=== PATIENT | male | born 1965 | race African-American/Black ===

== ENCOUNTER 2018-12-01 21:39 | Emergency (ER) | payer BC ==
[2018-12-01] MEDS ORDERED: cloNIDine HCl 0.1 MG TAB ONE (21:54)
--- NOTE | 2018-12-01 23:34 | ER ---
Nurse's Notes [facility] Name: Jessee Snyder Age: 53 yrs Sex: Male : 1965 Arrival Date: 12/01/2018 Time: 21:40 Bed 17 Private MD: Diagnosis: Essential (primary) hypertension Presentation: 12/01 21:41 Presenting complaint: EMS states: Pt was working outside when he felt dizzy and wh lightheaded. He was sent to the clinic and they found out Pt has high blood pressure and EMS was called. Pt states he has Hx of HTN and takes 4 Blood pressure pills which he forgot to take today. Pt denies any chest pain or NV. Transition of care: patient was not received from another setting of care. Onset of symptoms was December 01, 2018. Risk Assessment: Do you want to hurt yourself or someone else? Patient reports no desire to harm self or others. Initial Sepsis Screen: Does the patient meet any 2 criteria? No. Patient's initial sepsis screen is negative. Does the patient have a suspected source of infection? No. Patient's initial sepsis screen is negative. Care prior to arrival: None. 21:41 Method Of Arrival: EMS: [facility] 21:41 Acuity: BLAISE 3 Triage Assessment: 21:44 General: Appears. 21:49 Pain: Denies pain. Historical: - Allergies: 21:49 No Known Allergies; wh - PMHx: 21:49 Hypertension; - Immunization history:: Adult Immunizations up to date. - Social history:: Smoking status: Patient/guardian denies using tobacco. - Ebola Screening: : Patient negative for fever greater than or equal to 101.5 degrees Fahrenheit, and additional compatible Ebola Virus Disease symptoms Patient denies exposure to infectious person. Screenin:43 Abuse screen: Denies threats or abuse. Denies injuries from another. Nutritional screening: No deficits noted. Tuberculosis screening: No symptoms or risk factors identified. Fall Risk None identified. Assessment: 21:50 General: Appears in no apparent distress. Behavior is calm, cooperative, appropriate wh for age. Pain: Denies pain. Neuro: Level of Consciousness is awake, alert, obeys commands, Oriented to person, place, time, situation, Appropriate for age Systems Support Specialist are equal bilaterally. Cardiovascular: Heart tones S1 S2 Capillary refill < 3 seconds. Respiratory: Airway is patent Respiratory effort is even, unlabored, Respiratory pattern is regular, symmetrical. GI: Abdomen is round non-distended. : No signs and/or symptoms were reported regarding the genitourinary system. EENT: No signs and/or symptoms were reported regarding the EENT system. Derm: Skin is intact, is healthy with good turgor, Skin is pink, warm \T\ dry. normal. Musculoskeletal: Range of motion: intact in all extremities. 22:54 Reassessment: Patient appears in no apparent distress at this time. No changes from previously documented assessment. Patient and/or family updated on plan of care and expected duration. Pain level reassessed. Patient is alert, oriented x 3, equal unlabored respirations, skin warm/dry/pink. Patient denies pain at this time. 12/02 00:03 Reassessment: Patient appears in no apparent distress at this time. No changes from previously documented assessment. Patient and/or family updated on plan of care and expected duration. Pain level reassessed. Patient is alert, oriented x 3, equal unlabored respirations, skin warm/dry/pink. Patient states feeling better. Patient states symptoms have improved. Vital Signs: 12/01 21:47 BP 195 / 101; Pulse 74; Resp 18; Temp 98.6; Pulse Ox 100% on R/A; 22:54 BP 183 / 106; Pulse 63; Resp 18; Pulse Ox 99% on R/A; 12/02 00:03 BP 152 / 84; Pulse 59; Resp 18; Pulse Ox 99% on R/A; ED Course: 12/01 21:40 Patient arrived in ED. 21:41 Anna Arriaga is Primary Nurse. 21:43 Triage completed. 21:44 Arm band placed on right wrist. 21:45 Patient has correct armband on for positive identification. Bed in low position. Call light in reach. Side rails up X 1. Pulse ox on. NIBP on. 21:46 Johnna Oropeza FNP-C is PHCP. 21:46 Ayo Mixon MD is Attending Physician. kb 12/02 00:04 No provider procedures requiring assistance completed. Patient did not have IV access during this emergency room visit. Administered Medications: 12/01 21:57 Drug: cloNIDine 0.2 mg Route: PO; 12/02 00:04 Follow up: Response: No adverse reaction; Blood pressure is lowered Outcome: 12/01 23:33 Discharge ordered by MD. fair 12/02 00:04 Discharged to home ambulatory. Condition: good Discharge instructions given to patient, Instructed on discharge instructions, follow up and referral plans. medication usage, POC Essential Hypertension Demonstrated understanding of instructions, follow-up care, POC 00:05 Patient left the ED. Signatures: Johnna Oropeza FNP-C FNP-Ckb Habalo, Winsy
--- NOTE | 2018-12-01 23:34 | EDPHYS ---
Physician Documentation [facility] Name: Jessee Snyder Age: 53 yrs Sex: Male : 1965 Arrival Date: 12/01/2018 Time: 21:40 Bed 17 Private MD: ED Physician Ayo Mixon HPI: 12/01 22:25 This 53 yrs old Black Male presents to ER via EMS with complaints of high blood kb pressure. 22:25 The patient has elevated blood pressure and discovered this work. Onset: The kb symptoms/episode began/occurred just prior to arrival. Modifying factors: The symptoms are aggravated by didn't take medication today. Associated signs and symptoms: The patient has no apparent associated signs or symptoms. The patient has experienced similar episodes in the past, chronically. The patient has not recently seen a physician. Pt reports he forgot to take his medications for BP today and his BP was high at work. States he asked to go home to take them, but they wouldn't let him, they made him come here instead. States he feels fine. Has no complaints. Reports he takes 4 different bp medications, but cannot recall the names of them. Historical: - Allergies: 21:49 No Known Allergies; wh - PMHx: 21:49 Hypertension; wh - Immunization history:: Adult Immunizations up to date. - Social history:: Smoking status: Patient/guardian denies using tobacco. - Ebola Screening: : Patient negative for fever greater than or equal to 101.5 degrees Fahrenheit, and additional compatible Ebola Virus Disease symptoms Patient denies exposure to infectious person. ROS: 22:25 Constitutional: Negative for fever, chills, and weight loss, ENT: Negative for injury, kb pain, and discharge, Neck: Negative for injury, pain, and swelling, Cardiovascular: Negative for chest pain, palpitations, and edema, Respiratory: Negative for shortness of breath, cough, wheezing, and pleuritic chest pain, Abdomen/GI: Negative for abdominal pain, nausea, vomiting, diarrhea, and constipation, Back: Negative for injury and pain, : Negative for injury, bleeding, discharge, and swelling, MS/Extremity: Negative for injury and deformity, Skin: Negative for injury, rash, and discoloration, Neuro: Negative for headache, weakness, numbness, tingling, and seizure. Exam: 22:25 Constitutional: This is a well developed, well nourished patient who is awake, alert, kb and in no acute distress. Head/Face: Normocephalic, atraumatic. Eyes: Pupils equal round and reactive to light, extra-ocular motions intact. Lids and lashes normal. Conjunctiva and sclera are non-icteric and not injected. Cornea within normal limits. Periorbital areas with no swelling, redness, or edema. ENT: Nares patent. No nasal discharge, no septal abnormalities noted. Tympanic membranes are normal and external auditory canals are clear. Oropharynx with no redness, swelling, or masses, exudates, or evidence of obstruction, uvula midline. Mucous membranes moist. Neck: Trachea midline, no thyromegaly or masses palpated, and no cervical lymphadenopathy. Supple, full range of motion without nuchal rigidity, or vertebral point tenderness. No Meningismus. Chest/axilla: Normal chest wall appearance and motion. Nontender with no deformity. No lesions are appreciated. Cardiovascular: Regular rate and rhythm with a normal S1 and S2. No gallops, murmurs, or rubs. Normal PMI, no JVD. No pulse deficits. Respiratory: Lungs have equal breath sounds bilaterally, clear to auscultation and percussion. No rales, rhonchi or wheezes noted. No increased work of breathing, no retractions or nasal flaring. Abdomen/GI: Soft, non-tender, with normal bowel sounds. No distension or tympany. No guarding or rebound. No evidence of tenderness throughout. Back: No spinal tenderness. No costovertebral tenderness. Full range of motion. Skin: Warm, dry with normal turgor. Normal color with no rashes, no lesions, and no evidence of cellulitis. MS/ Extremity: Pulses equal, no cyanosis. Neurovascular intact. Full, normal range of motion. Neuro: Awake and alert, GCS 15, oriented to person, place, time, and situation. Cranial nerves II-XII grossly intact. Motor strength 5/5 in all extremities. Sensory grossly intact. Cerebellar exam normal. Normal gait. Vital Signs: 21:47 BP 195 / 101; Pulse 74; Resp 18; Temp 98.6; Pulse Ox 100% on R/A; wh 22:54 BP 183 / 106; Pulse 63; Resp 18; Pulse Ox 99% on R/A; 12/02 00:03 BP 152 / 84; Pulse 59; Resp 18; Pulse Ox 99% on R/A; MDM: 12/01 21:46 Patient medically screened. kb 22:18 Data reviewed: vital signs, nurses notes. Data interpreted: Pulse oximetry: on room air kb is 100 %. Interpretation: normal. 23:33 Counseling: I had a detailed discussion with the patient and/or guardian regarding: the kb historical points, exam findings, and any diagnostic results supporting the discharge/admit diagnosis, the need for outpatient follow up, a family practitioner, to return to the emergency department if symptoms worsen or persist or if there are any questions or concerns that arise at home. Administered Medications: 21:57 Drug: cloNIDine 0.2 mg Route: PO; 12/02 00:04 Follow up: Response: No adverse reaction; Blood pressure is lowered Disposition: 06:39 Co-signature as Attending Physician, Ayo Mixon MD I agree with the assessment and tw4 plan of care. Disposition: 12/01/18 23:33 Discharged to Home. Impression: Essential (primary) hypertension. - Condition is Stable. - Discharge Instructions: Hypertension, [id number]. - Work release form, Medication Reconciliation Form, Thank You Letter, Antibiotic Education, Prescription Opioid Use form. - Follow up: Emergency Department; When: As needed; Reason: Worsening of condition. Follow up: Private Physician; When: 2 - 3 days; Reason: Recheck today's complaints, Continuance of care, Re-evaluation by your physician. Signatures: Johnna Oropeza FNP-C FNP-Anna Saez Ayo Mixon MD MD tw4 Corrections: (The following items were deleted from the chart) 00:05 12/01 23:33 12/01/2018 23:33 Discharged to Home. Impression: Essential (primary) hypertension. Condition is Stable. Forms are Medication Reconciliation Form, Thank You Letter, Antibiotic Education, Prescription Opioid Use. Follow up: Emergency Department; When: As needed; Reason: Worsening of condition. Follow up: Private Physician; When: 2 - 3 days; Reason: Recheck today's complaints, Continuance of care, Re-evaluation by your physician. kb
== END 2018-12-02 00:05 | disposition home or self-care (01) ==
LOC: ER 21:39
DX: I10 Essential (primary) hypertension (principal)
CPT/HCPCS: 99283

== ENCOUNTER 2019-01-30 15:26 | Inpatient (IN) | payer BC ==
[2019-01-30] MEDS ORDERED: cloNIDine HCl 0.1 MG TAB ONE (15:52)
[2019-01-30] MEDS ORDERED: AMLODIPINE 5 MG TAB ONE (15:53)
--- NOTE | 2019-01-30 16:39 | RAD REPORT ---
EXAM DESCRIPTION: RAD - Chest Pa And Lat (2 Views) - 01/30/2019 4:33 pm CLINICAL HISTORY: COUGH Chest pain. COMPARISON: <Comparisons> FINDINGS: Mild interstitial pulmonary edema suspected. The heart is moderately enlarged. No displace d fractures. IMPRESSION: Mild CHF versus volume overload is possible.
[2019-01-30 17:11] LABS: Absolute Lymphocytes (CBC) 1.5 K/uL (0.7-4.9); Basophils % 0.5 % (0-1.3); Lymphocytes % 24.8 % (15.3-44.8); MPV 9.2 fL (7.6-11.3); RBC Red Blood Cell Count 4.44 M/uL (4.33-5.43)
[2019-01-30 17:15] LABS: Protime INR 1.16
[2019-01-30 17:36] LABS: Albumin 3.2 g/dL (3.4-5.0); Bilirubin Direct 0.3 mg/dL (0-0.2); Bilirubin Total 0.6 mg/dL (0.2-1.0); Magnesium 1.8 mg/dL (1.8-2.4); Potassium 3.9 mmol/L (3.5-5.1); Protein, Total 6.7 g/dL (6.4-8.2); Troponin (Emerg Dept Use Only) 0.05 ng/mL (0.0-0.045)
--- NOTE | 2019-01-30 17:48 | ER ---
Nurse's Notes [facility] Name: Jessee Snyder Age: 53 yrs Sex: Male : 1965 Arrival Date: 01/30/2019 Time: 15:28 Bed 13 Private MD: Unknown, Unknown Diagnosis: Hypertensive heart and chronic kidney disease with heart failure and stage 1 through stage 4 chronic kidney disease, or unspecified chronic kidney disease Presentation: 01/30 15:35 Presenting complaint: Patient states: SOB, COUGH x3 DAYS. Transition of care: patient ss was not received from another setting of care. Onset of symptoms is unknown. Risk Assessment: Do you want to hurt yourself or someone else? Patient reports no desire to harm self or others. Initial Sepsis Screen: Does the patient meet any 2 criteria? No. Patient's initial sepsis screen is negative. Does the patient have a suspected source of infection? No. Patient's initial sepsis screen is negative. Care prior to arrival: None. 15:35 Method Of Arrival: Wheelchair ss 15:35 Acuity: BLAISE 3 ss Historical: - Allergies: 15:36 No Known Allergies; ss - Home Meds: 17:02 clonidine HCl 0.2 mg Oral tab 1 tab 2 times per day [Active]; amlodipine 10 mg tab 1 sv tab once daily [Active]; lisinopril-hydrochlorothiazide 20-12.5 mg oral tab 1 tab twice a day [Active]; Coreg 3.125 mg Oral tab 1 tab 2 times per day [Active]; - PMHx: 15:36 Hypertension; ss - Immunization history:: Adult Immunizations up to date. - Social history:: Smoking status: Patient/guardian denies using tobacco. - Ebola Screening: : No symptoms or risks identified at this time. Screenin:42 Abuse screen: Denies threats or abuse. Denies injuries from another. Nutritional sv screening: No deficits noted. Tuberculosis screening: No symptoms or risk factors identified. Fall Risk None identified. Assessment: 16:00 General: Appears in no apparent distress. comfortable, Behavior is calm, cooperative, sv appropriate for age. Pain: Denies pain. Neuro: Level of Consciousness is awake, alert, obeys commands, Oriented to person, place, time, situation, Gait is steady. Cardiovascular: Patient's skin is warm and dry. Respiratory: Reports shortness of breath on exertion Airway is patent Respiratory effort is even, unlabored, Respiratory pattern is regular, symmetrical, Breath sounds are clear bilaterally. Derm: Skin is pink, warm \T\ dry. 17:05 Reassessment: Patient appears in no apparent distress at this time. No changes from sv previously documented assessment. Patient and/or family updated on plan of care and expected duration. Pain level reassessed. Patient is alert, oriented x 3, equal unlabored respirations, skin warm/dry/pink. 19:00 Reassessment: Patient and/or family updated on plan of care and expected duration. Pain jb4 level reassessed. Patient is alert, oriented x 3, equal unlabored respirations, skin warm/dry/pink. Patient states feeling better. 20:00 Reassessment: Patient and/or family updated on plan of care and expected duration. Pain jb4 level reassessed. Hospitalist at the bedside. Hospitalist made aware of current vital signs and pt reporting headache. Verbal order for Hydralazine 10mg IVP once given. Pt is awake and oriented x4 has labored breathing upon exertion. Vital Signs: 15:36 BP 194 / 112; Pulse 80; Resp 16; Temp 97.4; Pulse Ox 94% ; Weight 172.37 kg; Height 6 ss ft. (182.88 cm); 16:00 BP 221 / 131; Pulse 75; sv 16:41 BP 191 / 125; Pulse 75; sv 17:30 BP 175 / 105; Pulse 67; Resp 18; sv 18:18 BP 167 / 103; Pulse 68; Resp 14; Pulse Ox 96% ; sv 19:00 BP 179 / 117; Pulse 73; Resp 19; Temp 98.3(O); Pulse Ox 96% on R/A; jb4 19:49 BP 190 / 120; Pulse 68; Resp 18; Pulse Ox 97% on R/A; jb4 20:15 BP 172 / 105; Pulse 73; Resp 24; Pulse Ox 97% on R/A; jb4 15:36 Body Mass Index 51.54 (172.37 kg, 182.88 cm) ED Course: 15:28 Patient arrived in ED. as 15:28 Unknown, Unknown is Private Physician. as 15:35 Triage completed. 15:36 Arm band placed on. 15:40 Kam Cotton PA is PHCP. jr8 15:40 Rohith Schulz MD is Attending Physician. jr8 15:42 Karen Choi, RN is Primary Nurse. sv 15:42 Patient has correct armband on for positive identification. Bed in low position. Call light in reach. Door closed. Head of bed elevated. 15:43 Nurse Practitioner and/or Physician Industrial Designer to see patient. sv 16:32 X-ray completed. Patient tolerated procedure well. Patient moved back from radiology. az 16:34 Chest Pa And Lat (2 Views) XRAY In Process Unspecified. EDMS 17:02 Initial lab(s) drawn, by az, sent to lab. Inserted saline lock: 20 gauge in right dh3 antecubital area, using aseptic technique. Blood collected. 17:43 EKG done, by marine electronics technician. reviewed by Kam JUAREZ. [facility] 17:46 Nadeem Kim MD is Hospitalizing Provider. jr8 18:13 Awaiting bed assignment. sv 18:54 Primary Nurse role handed off by Karen Choi RN sv 20:15 No provider procedures requiring assistance completed. Patient admitted, IV remains in jb4 place. Administered Medications: 16:05 Drug: cloNIDine 0.2 mg Route: PO; sv 16:42 Follow up: Response: No adverse reaction sv 16:05 Drug: Norvasc 10 mg Route: PO; sv 16:42 Follow up: Response: No adverse reaction sv Outcome: 17:48 Decision to Hospitalize by Provider. jr8 20:15 Admitted to Tele accompanied by tech, via wheelchair, with chart, Report called to [facility] AGUS Kerr 20:15 Condition: stable 20:15 Discharge instructions given to patient, Instructed on the need for admit, Demonstrated understanding of instructions. 20:32 Patient left the ED. [facility] Signatures: Dispatcher [employer] EDGA Karen Choi, RN AGUS Alla Mejia Shelby, RN RN ss Roszak, Josh, PA PA [facility] Wolf Perry RN RN [facility] Sandi Duran [facility] Klaudia Delgado [facility] Teresita Calabrese al Corrections: (The following items were deleted from the chart) 17:02 15:36 Home Meds: None; sv
--- NOTE | 2019-01-30 17:49 | EDPHYS ---
Physician Documentation [facility] Name: Jessee Snyder Age: 53 yrs Sex: Male : 1965 Arrival Date: 01/30/2019 Time: 15:28 Bed 13 Private MD: Unknown, Unknown ED Physician Rohith Schulz HPI: 01/30 15:57 This 53 yrs old Black Male presents to ER via Wheelchair with complaints of Breathing jr8 Difficulty, Cold Symptoms. 15:57 The patient has shortness of breath with light activity. Onset: The symptoms/episode jr8 began/occurred 3 day(s) ago. Pt reports for the last three days he has had a cough that is productive of small amounts of sputum. Pt reports he has been out of his BP meds for a few days and will not have access to them for at least a week. Denies fevers, denies chest pain. Reports ill contacts at work. . Historical: - Allergies: 15:36 No Known Allergies; ss - Home Meds: 17:02 clonidine HCl 0.2 mg Oral tab 1 tab 2 times per day [Active]; amlodipine 10 mg tab 1 sv tab once daily [Active]; lisinopril-hydrochlorothiazide 20-12.5 mg oral tab 1 tab twice a day [Active]; Coreg 3.125 mg Oral tab 1 tab 2 times per day [Active]; - PMHx: 15:36 Hypertension; ss - Immunization history:: Adult Immunizations up to date. - Social history:: Smoking status: Patient/guardian denies using tobacco. - Ebola Screening: : No symptoms or risks identified at this time. ROS: 15:57 Constitutional: Negative for fever, chills, and weight loss, Eyes: Negative for injury, jr8 pain, redness, and discharge, ENT: Negative for injury, pain, and discharge, Neck: Negative for injury, pain, and swelling, Cardiovascular: Negative for chest pain, palpitations, and edema, Abdomen/GI: Negative for abdominal pain, nausea, vomiting, diarrhea, and constipation, Back: Negative for injury and pain, MS/Extremity: Negative for injury and deformity, Skin: Negative for injury, rash, and discoloration. 15:57 Respiratory: Positive for cough, with green sputum, Negative for hemoptysis, orthopnea, pleurisy, wheezing. Exam: 15:57 Constitutional: This is a well developed, well nourished patient who is awake, alert, jr8 and in no acute distress. Head/Face: Normocephalic, atraumatic. Eyes: Pupils equal round and reactive to light, extra-ocular motions intact. Lids and lashes normal. Conjunctiva and sclera are non-icteric and not injected. Cornea within normal limits. Periorbital areas with no swelling, redness, or edema. ENT: Nares patent. No nasal discharge, no septal abnormalities noted. Tympanic membranes are normal and external auditory canals are clear. Oropharynx with no redness, swelling, or masses, exudates, or evidence of obstruction, uvula midline. Mucous membranes moist. Neck: Trachea midline, and no cervical lymphadenopathy. Supple, full range of motion without nuchal rigidity, or vertebral point tenderness. No Meningismus. Chest/axilla: Normal chest wall appearance and motion. Nontender with no deformity. No lesions are appreciated. Cardiovascular: Regular rate and rhythm with a normal S1 and S2. No gallops, murmurs, or rubs. Normal PMI, no JVD. No pulse deficits. Respiratory: Lungs have equal breath sounds bilaterally, clear to auscultation No rales, rhonchi or wheezes noted. No increased work of breathing, no retractions or nasal flaring. Abdomen/GI: Soft, non-tender, with normal bowel sounds. No distension or tympany. No guarding or rebound. No evidence of tenderness throughout. Back: No spinal tenderness. No costovertebral tenderness. Full range of motion. Skin: Warm, dry with normal turgor. Normal color with no rashes, no lesions, and no evidence of cellulitis. Vital Signs: 15:36 BP 194 / 112; Pulse 80; Resp 16; Temp 97.4; Pulse Ox 94% ; Weight 172.37 kg; Height 6 ss ft. (182.88 cm); 16:00 BP 221 / 131; Pulse 75; sv 16:41 BP 191 / 125; Pulse 75; sv 17:30 BP 175 / 105; Pulse 67; Resp 18; sv 18:18 BP 167 / 103; Pulse 68; Resp 14; Pulse Ox 96% ; sv 19:00 BP 179 / 117; Pulse 73; Resp 19; Temp 98.3(O); Pulse Ox 96% on R/A; jb4 19:49 BP 190 / 120; Pulse 68; Resp 18; Pulse Ox 97% on R/A; jb4 20:15 BP 172 / 105; Pulse 73; Resp 24; Pulse Ox 97% on R/A; jb4 15:36 Body Mass Index 51.54 (172.37 kg, 182.88 cm) ss MDM: 15:40 Patient medically screened. 8 17:46 Data reviewed: vital signs, nurses notes, lab test result(s), EKG, radiologic studies, jr8 plain films. Data interpreted: Pulse oximetry: on room air is 94 %. Interpretation: acceptable. Counseling: I had a detailed discussion with the patient and/or guardian regarding: the historical points, exam findings, and any diagnostic results supporting the discharge/admit diagnosis, lab results, radiology results, the need for further work-up and treatment in the hospital. Physician consultation: Nadeem Kim MD was called at 17:46, was contacted at 17:46, regarding admission, to the telemetry unit. consult, patient's condition, and will see patient in ED. 01/30 16:51 Order name: Basic Metabolic Panel; Complete Time: 17:38 01/30 16:51 Order name: CBC with Diff; Complete Time: 17:22 01/30 16:51 Order name: LFT's; Complete Time: 17:38 01/30 16:51 Order name: Magnesium; Complete Time: 17:38 01/30 16:51 Order name: NT PRO-BNP; Complete Time: 17:38 01/30 16:51 Order name: PT-INR; Complete Time: 17:22 01/30 15:48 Order name: Chest Pa And Lat (2 Views) XRAY; Complete Time: 16:50 01/30 16:51 Order name: Troponin (emerg Dept Use Only); Complete Time: 17:38 01/30 16:51 Order name: EKG; Complete Time: 16:52 01/30 16:51 Order name: Cardiac monitoring; Complete Time: 17:38 01/30 16:51 Order name: EKG - Nurse/Tech; Complete Time: 17:38 01/30 16:51 Order name: IV Saline Lock; Complete Time: 17:03 01/30 16:51 Order name: Labs collected and sent; Complete Time: 17:03 8 01/30 16:51 Order name: O2 Per Protocol; Complete Time: 17:38 8 01/30 16:51 Order name: O2 Sat Monitoring; Complete Time: 17:38 8 Administered Medications: 16:05 Drug: cloNIDine 0.2 mg Route: PO; sv 16:42 Follow up: Response: No adverse reaction sv 16:05 Drug: Norvasc 10 mg Route: PO; sv 16:42 Follow up: Response: No adverse reaction sv Disposition: 01/31 06:21 Co-signature as Attending Physician, Rohith Schulz MD I agree with the assessment and yayo plan of care. Disposition: 01/30/19 17:48 Hospitalization ordered by Nadeem Kim for Inpatient Admission. Preliminary diagnosis is Hypertensive heart and chronic kidney disease with heart failure and stage 1 through stage 4 chronic kidney disease, or unspecified chronic kidney disease. - Bed requested for Telemetry/MedSurg (Inpatient). - Status is Inpatient Admission. jb4 - Condition is Stable. - Problem is new. - Symptoms are unchanged. UTI on Admission? No Signatures: Dispatcher [employer] EDMS Natty Haynes Stephanie, RN RN Rohith Schulz MD MD cha Smirch, Shelby, RN RN Kam Cotton PA PA jr8 Wolf Perry RN RN jb4 Corrections: (The following items were deleted from the chart) 01/30 17:02 15:36 Home Meds: None; [facility] specialty hospital 18:14 17:48 Hospitalization Ordered by Nadeem Kim MD for Observation. Preliminary diagnosis jr8 is Hypertensive heart and chronic kidney disease with heart failure and stage 1 through stage 4 chronic kidney disease, or unspecified chronic kidney disease. Bed requested for Telemetry/MedSurg (observation). Status is Observation. Condition is Stable. Problem is new. Symptoms are unchanged. UTI on Admission? No. jr8 18:39 18:14 01/30/2019 17:48 Hospitalization Ordered by Nadeem Kim MD for Inpatient bd Admission. Preliminary diagnosis is Hypertensive heart and chronic kidney disease with heart failure and stage 1 through stage 4 chronic kidney disease, or unspecified chronic kidney disease. Bed requested for Telemetry/MedSurg (Inpatient). Status is Inpatient Admission. Condition is Stable. Problem is new. Symptoms are unchanged. UTI on Admission? No. jr8 20:32 18:39 01/30/2019 17:48 Hospitalization Ordered by Nadeem Kim MD for Inpatient jb4 Admission. Preliminary diagnosis is Hypertensive heart and chronic kidney disease with heart failure and stage 1 through stage 4 chronic kidney disease, or unspecified chronic kidney disease. Bed requested for Telemetry/MedSurg (Inpatient). Status is Inpatient Admission. Condition is Stable. Problem is new. Symptoms are unchanged. UTI on Admission? No. bd
[2019-01-30] MEDS ORDERED: HYDRALAZINE HCL 20 MG/ML VIAL ONE (19:53)
[2019-01-30] MEDS: HYDRALAZINE HCL 20 MG/ML VIAL IV PRN (20:10)
--- NOTE | 2019-01-30 20:32 | P.HP ---
Certification for Inpatient Patient admitted to: Observation With expected LOS: <2 Midnights Patient will require the following post-hospital care: None Practitioner: I am a practitioner with admitting privileges, knowledge of patient current condition, hospital course, and medical plan of care. Services: Services provided to patient in accordance with Admission requirements found in Title 42 Section 412.3 of the Code of Federal Regulations Patient History Date of Service: 01/31/19 Reason for admission: Shortness of breath History of Present Illness: 53-year-old morbidly obese male with a history of hypertension presented to the emergency department with a complaint of shortness of breath of about 3 days duration. He described shortness of breath worse with exertion , denies shortness of breath at rest. He denied any chest pain or palpitations. He stated he run out of his antihypertensives 3 days ago. He denies any history of obstructive sleep apnea or diabetes. His blood pressure was severely elevated in the ED, SBP up to 200s. His troponin is mildly elevated to 0.05. EKG demonstrated sinus rhythm, chest x- ray demonstrated mild CHF pattern. Patient was given a dose of 0.2 mg clonidine and amlodipine with a transient improvement in his blood pressure. Patient is admitted for further management. Allergies No Known Allergies Allergy (Verified 01/30/19 20:46) Home Medications: Amlodipine [Norvasc] 10 mg PO DAILY 01/30/19 Carvedilol [Coreg] 3.125 mg PO BID 01/30/19 Clonidine HCl [Catapres] 0.2 mg PO BID 01/30/19 Lisinopril/Hydrochlorothiazide [Lisinopril-Hctz 20-12.5 mg Tab] 1 tab PO BID - Past Medical/Surgical History -: Hypertension -: Morbid obesity Past Surgical History: Patient denies surgical history - Family History Sister -: Diabetes - Social History Smoking Status: Current every day smoker Alcohol use: No CD- Drugs: No Place of Residence: Home Review of Systems Other: General: No fever, no malaise, no unintentional weight loss. Eyes: No eye discharge, Respiratory: No cough. CVS: No chest pain, no palpitation, no lightheadedness. GI: No abdominal pain, no nausea no vomit, no constipation, no diarrhea. Genitourinary: No dysuria, no urinary frequency, no incontinence, no hematuria. Musculoskeletal: No joint pains, or joint swelling, no gait instability. Neurology: No headache, no asymmetric, weakness, no problem with swallowing. Except as documented, all other systems reviewed and negative. Physical Examination - Physical Exam General: Alert, In no apparent distress, Oriented x3, Obese HEENT: Atraumatic, Normocephalic, Mucous membr. moist/pink Neck: Supple, JVD not distended, No Thyromegaly Respiratory: Clear to auscultation bilaterally, Diminished Cardiovascular: Regular rate/rhythm, Normal S1 S2, No murmurs, Edema (1+ bilateral ankle and feet edema) Capillary refill: <2 Seconds Gastrointestinal: Normal bowel sounds, Soft and benign, No tenderness Musculoskeletal: No erythema, No tenderness Integumentary: No rashes Neurological: Normal strength at 5/5 x4 extr, Cranial nerves 3-12 intact - Studies Laboratory Data (last 24 hrs) 01/30/19 17:02: PT 13.6 H, INR 1.16 01/30/19 17:02: WBC 5.9, Hgb 14.9, Hct 44.0, Plt Count 196 01/30/19 17:02: Sodium 140, Potassium 3.9, BUN 20 H, Creatinine 1.36 H, Glucose 103, Magnesium 1.8, Total Bilirubin 0.6, AST 28, ALT 44, Alkaline Phosphatase 85 Assessment and Plan - Problems (Diagnosis) (1) Malignant hypertension Current Visit: Yes Status: Acute (2) Acute CHF Current Visit: Yes Status: Acute (3) Troponin level elevated Current Visit: Yes Status: Acute (4) Morbid obesity Current Visit: Yes Status: Acute (5) Tobacco use Current Visit: Yes Status: Acute (6) Chronic kidney disease, stage 3 Current Visit: Yes Status: Acute - Plan High cardiac risk factors. Admit to General Medical floor Trend troponin Aggressive blood pressure management Resume home med including clonidine, lisinopril, amlodipine and Coreg given noncompliance to medication. Hydralazine IV p.r.n. for BP spikes. Target SBP of less than 140. Obtain echo IV Lasix x 2 doses Monitor renal function panel. May need outpatient screen for obstructive sleep apnea. - Advance Directives Does patient have a Living Will: No Does patient have a Durable POA for Healthcare: No
[2019-01-30] MEDS: FUROSEMIDE 40 MG/4 ML VIAL IV SCH (21:22)
[2019-01-30] MEDS: CARVEDILOL 6.25 MG TAB PO SCH (21:22)
[2019-01-30 22:43] LABS: Urine Appearance CLEAR; Urine Bilirubin NEGATIVE (NEG); Urine Blood NEGATIVE (NEG); Urine Color YELLOW; Urine Glucose NEGATIVE (NEG); Urine Protein NEGATIVE (NEG); Urine pH 7.5 (5.0-7.0)
[2019-01-30 22:52] LABS: Urine Microscopic Reflex NO UMIC
[2019-01-31] MEDS ORDERED: Nicardipine/NS 25 MG/250 ML KIT IV ONE ×2 (00:42→06:02)
[2019-01-31] MEDS: Nicardipine in Saline, Iso-Osm 20 MG/200 ML IV.SOLN. IV PRN ×3 (00:45→10:50)
[2019-01-31] MEDS: ONDANSETRON 4 MG/2 ML VIAL IV PRN ×2 (04:11→11:00)
[2019-01-31 05:09] LABS: Basophils % 0.8 % (0-1.3); Hematocrit 47.8 % (39.6-49.0); Lymphocytes % 15.7 % (15.3-44.8); MPV 9.8 fL (7.6-11.3); RBC Red Blood Cell Count 4.86 M/uL (4.33-5.43)
[2019-01-31 05:24] LABS: Albumin 3.6 g/dL (3.4-5.0); Bilirubin Total 0.9 mg/dL (0.2-1.0); Phosphorus 2.5 mg/dL (2.5-4.9); Potassium 3.3 mmol/L (3.5-5.1); Protein, Total 7.7 g/dL (6.4-8.2)
--- NOTE | 2019-01-31 05:32 | EKG ---
Test Date: 2019-01-30 Test Time: 17:14:57 Dental Hygiene Administrative Assistant: YARELI MEASUREMENT RESULTS: Intervals: Rate: 69 OK: 186 QRSD: 106 QT: 428 QTc: 458 [place]: P: 68 OK: 186 QRS: -28 T: -15 INTERPRETIVE STATEMENTS: Normal sinus rhythm Moderate voltage criteria for LVH, may be normal variant Borderline ECG No previous ECG available for comparison Electronically Signed On 01-31-19 05:32:09 CDT by Santy Michael
[2019-01-31] MEDS ORDERED: ACETAMINOPHEN 500 MG TAB PO ONE (06:37)
--- NOTE | 2019-01-31 06:42 | P.PN ---
Date of Service: 01/31/19 Patient's blood pressure is still high after a dose of Clonidine, amlodipine and IV hydralazine. Given that patient also has evidence of CHF on his chest x- ray, he will transfered to ICU for Nicardipine drip for malignant hypertension.
[2019-01-31] MEDS ORDERED: TRAMADOL HCL 50 MG TAB PO ONE (07:42)
[2019-01-31] MEDS: CARVEDILOL 6.25 MG TAB PO SCH ×2 (08:06→20:47)
[2019-01-31] MEDS: cloNIDine HCl 0.1 MG TAB PO SCH ×2 (08:06→20:47)
[2019-01-31] MEDS: FUROSEMIDE 40 MG/4 ML VIAL IV SCH (08:42)
[2019-01-31] MEDS: LISINOPRIL 20 MG TAB PO SCH (08:46)
--- NOTE | 2019-01-31 10:59 | PN ---
Patient is seen and examined. Chart reviewed and case discussed with RN and Dr. Montes. Patient complains of headache. Blood pressure still has been elevated. Medications: List reviewed. Physical Examination: Vital Signs: Temperature 98.3, heart rate 89, blood pressure 183/111, respirations 24, O2 sat at 95% on room air. General: Awake, alert, oriented x3. Morbidly obese male. BMI 45. CV: S1, S2. Regular rate and rhythm. Peripheral pulses weak. Respiratory: Diminished breath sounds, some crackles heard at the bases. No wheezing or stridor. Patient is slightly tachypneic. Gastrointestinal: Abdomen is soft, nontender, nondistended. Positive bowel sounds. Extremities: No clubbing, cyanosis, pedal edema. Neurologic: Nonfocal. Cranial nerves 2 through 12 intact grossly. No focal neurological deficit. Skin: No rashes. Normal skin turgor. Psych: Mood is okay. Affect is full. Insight and judgment are good. Laboratory Data: Sodium 141, potassium 3.3, chloride 102, CO2 of 31, BUN 18, creatinine 1.23, glucose 113, calcium 9.1, phosphorus 2.5. Troponin 0.05, 0.05 and 0.02. WBC 6.3, H and H 16.4, 47.8, platelets 206, neutrophils 75%. Assessment And Plan: A 53-year-old male with; 1. Accelerated hypertension. We will continue with Cardene drip, wean as tolerated. Resume home oral medications except for amlodipine, Coreg dose has been doubled, may be beneficial to switch patient to clonidine patch. 2. Acute congestive heart failure, unknown ejection fraction. Echocardiogram is pending. Chest x-ray did show some CHF pattern, likely related to longstanding hypertension that is not well controlled. We will continue with congestive heart failure guidelines and monitor I's and O's. Continue Lasix. 3. Elevated troponin level. Patient denies any significant chest pain, likely related to malignant hypertension and congestive heart failure. 4. Morbid obesity. BMI of 45. 5. Nicotine dependence with cigarette smoking counseled. 6. Chronic kidney disease stage 3. Creatinine is improved. Currently at 1.23. We will continue to monitor. 7. Hypokalemia probably likely secondary to Lasix. 8. Noncompliance. Plan: We will continue to monitor in ICU setting. Wean off Cardene drip as tolerated. Resume home medications as appropriate. Cardiology consultation. Follow up on echocardiogram. /ROWDY Voice ID: [id number] Report ID: [id number] MTDD
[2019-01-31] MEDS ORDERED: MORPHINE 2 MG/ML SYR IV ONE (11:06)
--- NOTE | 2019-01-31 12:43 | ECHO ---
HEIGHT: 6 ft 0 in WEIGHT: 337 lb 0 oz DATE OF STUDY: 01/31/[address]: Nadeem Kim MD 2-DIMENSIONAL: YES M.MODE: YES DOPPLER: YES COLOR FLOW: YES TDS: YES PORTABLE: YES DEFINITY: NO BUBBLE STUDY: HO DIAGNOSIS: HYPERTENSION URGENCY, ELEVATED TROPONIN, EVALUATE FOR LEFT VENTRICULAR HYPERTROPHY, END ORGAN DAMAGE CARDIAC HISTORY: CATHERIZATION: NO SURGERY: NO PROSTHETIC VALVE: NO PACEMAKER: NO MEASUREMENTS (cm) DIASTOLIC (NORMALS) SYSTOLIC (NORMALS) IVSd 1.4 (0.6-1.2) LA Diam 3.4 (1.9-4.0) LVEF 50-55% LVIDd 5.3 (3.5-5.7) LVIDs 4.1 (2.0-3.5) %FS 23% LVPWd 1.5 (0.6-1.2) Ao Diam 3.3 (2.0-3.7) 2 DIMENSIONAL ASSESSMENT: RIGHT ATRIUM: NORMAL LEFT ATRIUM: NORMAL RIGHT VENTRICLE: NORMAL LEFT VENTRICLE: LEFT VENTRICULAR HYPERTROPHY TRICUSPID VALVE: NORMAL MITRAL VALVE: NORMAL PULMONIC VALVE: NORMAL AORTIC VALVE: NORMAL PERICARDIAL EFFUSION: NONE AORTIC ROOT: NORMAL LEFT VENTRICULAR WALL MOTION: NORMAL LEFT VENTRICULAR EJECTION FRACTION. DECREASED LEFT VENTRICULAR COMPLIANCE. DOPPLER/COLOR FLOW: MILD TRICUSPID REGURGITATION. COMMENTS: LEFT VENTRICULAR HYPERTROPHY. NORMAL LEFT VENTRICULAR EJECTION FRACTION. DECREASED LEFT VENTRICULAR COMPLIANCE. MILD TRICUSPID REGURGITATION. NORMAL RIGHT VENTRICULAR SYSTOLIC PRESSURE. . TECHNOLOGIST: Gisselle TOMLIN
[2019-01-31] MEDS ORDERED: NICARDIPINE HCL 25 MG in NA CHLORIDE 0.9% 240 ML IV PRN (14:34)
[2019-01-31] MEDS: FUROSEMIDE 20 MG/ 2ML VIAL IV SCH (17:07)
[2019-01-31] MEDS: TRAMADOL HCL 50 MG TAB PO PRN (18:00)
[2019-01-31] MEDS: POTASSIUM CL SA 10 MEQ TAB PO SCH (18:32)
--- NOTE | 2019-02-01 01:02 | CON ---
Date of Consultation: 01/31/[address] Bolanos's service on 01/30/2019. I saw the patient on 01/31/2019. Reason For Consultation: Hypertensive crisis and congestive heart failure. History Of Present Illness: Mr. Snyder is a 53-year-old black male, recently moved to this area. He is here working. Has had a history of congestive heart failure before and severe hypertension. He has been noncompliant with his medication, came in with hypertensive crisis. Chest x-ray showed mild con gestive heart failure. EKG showed left ventricular hypertrophy. Patient denied any chest pain or na usea or vomiting, but has had diaphoresis and shortness of breath. Denied any palpitation. Denied a ny syncope. Past Medical History: Include hypertension. Allergies: NONE. Review of Systems: Negative. Social History: Negative. Family History: Positive for hypertension. Medications: At home are supposed to be clonidine 0.2 b.i.d., lisinopril with hydrochlorothiazide 20 /12.5 mg b.i.d., amlodipine 10 mg daily, and Coreg 3.125 mg 1 p.o. b.i.d. Physical Examination: Vital Signs: He weighed 380 pounds. His initial blood pressure was 167/103. He is presently at 135 /63, his pulse rate is 73, his breathing rate is 20, his temperature is 98.6. His I's and O's are ad equate. O2 saturation is 98% on room air. HEENT: Negative. Neck: Supple without any bruit, lymphadenopathy, JVD, or thyromegaly. Chest: Reveals some crackles at both bases. Cardiac: Revealed a regular rhythm and rate with S4 gallops, but no murmurs or rubs. Abdomen: Obese, but benign. Extremities: Revealed no clubbing, cyanosis. He had about 1+ edema. Skin: Dry and intact. His pulses were present at the dorsalis pedis and posterior tibial bilaterall y. Neurological: He was nonfocal. Diagnostic Data: His last creatinine was 1.23. CBC was normal. He had a potassium of 3.3, his gluc ose was 113. His GFR was 75. Troponin is 0.05. BNP was 363. Impression And Plan: 1.Acute on chronic diastolic congestive heart failure. 2.Hypertension with left ventricular hypertrophy, poorly controlled secondary to noncompliance. He is now much improved on his present regimen. Carvedilol was added, Lasix was added, hydralazine was added. I agree with his present management. Main problem obviously is noncompliance and morbid obesity for which he was counseled on as well as a low-salt diet. Echocardiogram which was ordered, showed an ejection fraction of 50% to 55% with lef t ventricular hypertrophy and decreased left ventricular compliance, mild tricuspid regurgitation wit h normal right ventricular systolic pressure. I would continue his present regimen, switch all his m edication to p.o. if possible, move him to telemetry tomorrow and hopefully home in the next day or 2 . Compliance needs to be definitely readdressed with him. I will be happy to see him as an outpatie nt. ROLAND/ROWDY Voice ID: [id number] Report ID: [id number]
[2019-02-01] MEDS: TRAMADOL HCL 50 MG TAB PO PRN (03:28)
[2019-02-01] MEDS: HYDRALAZINE HCL 20 MG/ML VIAL IV PRN ×2 (05:14→11:21)
[2019-02-01 05:26] VITALS: BMI 51.5
[2019-02-01 05:33] LABS: Phosphorus 3.4 mg/dL (2.5-4.9); Potassium 3.7 mmol/L (3.5-5.1)
[2019-02-01] MEDS: cloNIDine HCl 0.1 MG TAB PO SCH ×2 (08:02→22:03)
[2019-02-01] MEDS: FUROSEMIDE 20 MG/ 2ML VIAL IV SCH ×2 (08:02→15:50)
[2019-02-01] MEDS: CARVEDILOL 6.25 MG TAB PO SCH (08:02)
[2019-02-01] MEDS: LISINOPRIL 20 MG TAB PO SCH (08:02)
[2019-02-01] MEDS: POTASSIUM CL SA 10 MEQ TAB PO SCH (08:03)
[2019-02-01] MEDS: ONDANSETRON 4 MG/2 ML VIAL IV PRN ×3 (09:12→21:56)
[2019-02-01] MEDS: ACETAMINOPHEN 325 MG TABLET PO PRN ×3 (09:14→22:02)
--- NOTE | 2019-02-01 09:48 | RAD REPORT ---
EXAM DESCRIPTION: Shine Patel And Haseeb (2 Views)02/01/2019 9:00 am CLINICAL HISTORY: Shortness of breath/hypotension COMPARISON: January 30 FINDINGS: Mild bilateral pulmonary opacities without change The heart is mildly to moderately enlarged IMPRESSION: Mild CHF
[2019-02-01] MEDS: FLUTICASONE 50MCG NASAL SPRAY NAS SCH ×2 (11:25→21:00)
[2019-02-01] MEDS: GUAIFENESIN 600 MG SA TAB PO SCH ×2 (11:25→22:03)
[2019-02-01] MEDS ORDERED: HYDRALAZINE HCL 20 MG/ML VIAL IV ONE (15:45)
--- NOTE | 2019-02-01 16:24 | RAD REPORT ---
EXAM DESCRIPTION: CT - Head Brain Wo Cont - 02/01/2019 4:18 pm CLINICAL HISTORY: headache Headache, drowsiness COMPARISON: No comparisons TECHNIQUE: All CT scans are performed using dose optimization technique as appropriate and may inclu de automated exposure control or mA/KV adjustment according to patient size. FINDINGS: No intracranial hemorrhage, hydrocephalus or extra-axial fluid collection.No areas of brai n edema or evidence of midline shift. The paranasal sinuses and mastoids are clear. The calvarium is intact. IMPRESSION: No acute intracranial abnormality.
[2019-02-01] MEDS ORDERED: PROMETHAZINE 25 MG/ML VIAL IV PRN (16:34)
--- NOTE | 2019-02-01 17:03 | P.PN ---
Date of Service: 02/01/19 Patient having multiple episodes of nausea and vomiting. Phenergan added. Patient assessed at bedside. No neuro deficits, no nystagmus. No blurry vision. Earlier patient complained of sinus type symptoms but no relief from mucinex and flonase. Head CT ordered to rule out hemorrhage causing PAEZ. Kidney function worse today. Will consult nephrology. Monitor closely. Neuro checks
[2019-02-01] MEDS ORDERED: LABETALOL 20 MG/4ML SYRINGE IV PRN (17:29)
[2019-02-01] MEDS: FUROSEMIDE 40 MG/4 ML VIAL IV SCH (17:56)
[2019-02-01] MEDS ORDERED: cloNIDine HCl 0.1 MG TAB PO ONE (18:00)
[2019-02-01] MEDS ORDERED: CARVEDILOL 6.25 MG TAB PO ONE (18:00)
--- NOTE | 2019-02-01 20:08 | PN ---
Date of Progress Note: 02/01/2019 Subjective: Patient seen and examined. Chart reviewed and case discussed with RN and Dr. Michael. Patient is doing better today in terms of his blood pressure off the Cardene drip; however, he is still having some nausea and vomiting multiple times. Continues to have headaches. States it is more sinus- type headache. Medications: List reviewed. Physical Examination: Vital Signs: Temperature 97.7, heart rate 67, blood pressure 168/90, respirations 18, O2 97% on room air. General: Awake, alert, oriented x3. Ill-appearing male, morbidly obese. CV: S1, S2. Regular rate and rhythm. Peripheral pulses weak. Respiratory: Diminished breath sounds. No wheezing or stridor. Gastrointestinal: Abdomen is soft, nontender, nondistended. Positive bowel sounds. Extremities: No clubbing, cyanosis. Patient has pedal edema. Neurologic: Cranial nerves 2 through 12 intact grossly. No focal neurological deficits. Speech is normal. Sensation intact to light touch. Laboratory Data: Sodium 138, potassium 3.7, chloride 101, CO2 of 32, BUN 28, creatinine 1.8, glucose 94, calcium 8.8, phosphorus 3.4, magnesium 2. Repeat chest x-ray, personally reviewed, shows mild CHF. Echocardiogram shows EF 50% to 55%, left ventricular hypertrophy. Assessment And Plan: A 53-year-old male with; 1. Accelerated hypertension, now off Cardene drip. Did have 1 blood pressure measurement spike; however, that was with electronic cuff. Manual measurement was improved, down from 200 to 170 systolic. We will continue with home medications. May need to adjust clonidine to t.i.d. 2. Acute congestive heart failure, EF is 50% to 55%, diastolic dysfunction. Chest x-ray, not significantly changed. However, symptomatically, patient is better. Minimal edema. Shortness of breath has improved on supplemental oxygen. We will continue Lasix. 3. Acute kidney injury. Creatinine jumped up to 1.8. We will discontinue Lisinopril. 4. Elevated troponin level, likely related to his accelerated hypertension and congestive heart failure. No intervention planned by Cardiology at this time. 5. Hypertensive heart disease, likely due to long-standing uncontrolled hypertension. Patient has been counseled. 6. Morbid obesity, BMI of 45. 7. Nicotine dependence with cigarette smoking, counseled. 8. Headache, may be related to drop in blood pressure. Patient has been dwelling at 180s to 200s for a long period of time. Patient also reporting some sinus symptoms. We will start on Mucinex and nasal spray. Patient did have multiple episodes of nausea and vomiting. We will obtain head CT scan to rule out any bleed due to hypertension. We will continue to monitor closely. Neuro checks. 9. Hypokalemia, corrected. We will continue with potassium supplement as patient is on Lasix. 10. Noncompliance, intentional. Counseled. Plan: 1. Step down from ICU. Continue to monitor. 2. Likely discharge in the next 24 to 48 hours depending on clinical response. /ROWDY Voice ID: [id number] Report ID: [id number] MTDD
[2019-02-01] MEDS: CARVEDILOL 12.5 MG TAB PO SCH (22:03)
[2019-02-02 05:16] LABS: Albumin 3.4 g/dL (3.4-5.0); Magnesium 2.2 mg/dL (1.8-2.4); Potassium 3.6 mmol/L (3.5-5.1); Thyroid Stimulating Hormone 1.04 uIU/mL (0.360-3.740); Uric Acid 9.6 mg/dL (3.5-7.2)
[2019-02-02] MEDS: FLUTICASONE 50MCG NASAL SPRAY NAS SCH ×2 (07:45→21:00)
[2019-02-02 07:59] LABS: Urine Appearance CLEAR; Urine Blood NEGATIVE (NEG); Urine Color DK YELLOW; Urine Glucose NEGATIVE (NEG); Urine Protein TRACE (NEG); Urine Specific Gravity 1.015 (1.005-1.030)
[2019-02-02 08:08] LABS: Barbiturates NEGATIVE (NEGATIVE); Benzodiazepines NEGATIVE (NEGATIVE); Cocaine NEGATIVE (NEGATIVE); METHAMPHETAM NEGATIVE (NEGATIVE); Methadone NEGATIVE (NEGATIVE); Opiates NEGATIVE (NEGATIVE); Phencyclidine NEGATIVE (NEGATIVE); THC Cannibis NEGATIVE (NEGATIVE)
[2019-02-02 08:10] LABS: Urine Protein/Creatinine Ratio 0.13 ratio (<0.15)
[2019-02-02 08:16] LABS: Urine Bilirubin 1+ (NEG); Urine Microscopic Reflex ORDER UMIC
[2019-02-02 08:23] LABS: Urine Bacteria NONE SEEN /HPF (NONE SEEN); Urine Culture Reflex Order NOT NEEDED; Urine RBC NONE SEEN /HPF (NONE SEEN)
[2019-02-02] MEDS ORDERED: POTASSIUM CL SA 10 MEQ TAB PO ONE (09:00)
[2019-02-02] MEDS: GUAIFENESIN 600 MG SA TAB PO SCH ×2 (10:10→22:00)
[2019-02-02] MEDS: cloNIDine HCl 0.1 MG TAB PO SCH ×3 (10:11→22:00)
[2019-02-02] MEDS: CARVEDILOL 12.5 MG TAB PO SCH ×2 (10:12→22:00)
[2019-02-02] MEDS: FUROSEMIDE 40 MG/4 ML VIAL IV SCH (10:13)
--- NOTE | 2019-02-02 11:57 | RAD REPORT ---
EXAM DESCRIPTION: US - Renal Ultrasound-Complete - 02/02/2019 11:46 am CLINICAL HISTORY: . Acute renal injury COMPARISON: None. FINDINGS: The right kidney measures 11 cm with a normal echotexture. The left kidney measures 11 cm with a normal echotexture. Hydronephrosis is not seen. No gross abnormality of the bladder IMPRESSION: Unremarkable renal ultrasound.
[2019-02-02] MEDS: CALCITROL 0.25 MCG CAP PO SCH (12:06)
--- NOTE | 2019-02-02 13:27 | PN ---
Date of Progress Note: 02/02/2019 Patient has been followed for congestive heart failure. Mr. Snyder has had his blood pressure much impr nate. The last pressure is 119/68. He had a headache and nausea and vomiting. He had a head CT sca n that was negative. Creatinine has gone up to 2.6. Nephrology consultation is pending. Echocardio gram showed an ejection fraction of 50% to 55% with decreased left ventricular compliance and left ve ntricular hypertrophy. I think some of his symptoms with headache, nausea and vomiting may be second sydni to his medication. I will discuss the case further with Dr. Bolanos. Continue present management for now. ROLAND/ROWDY Voice ID: [id number] Report ID: [id number]
--- NOTE | 2019-02-02 14:14 | RAD REPORT ---
EXAM DESCRIPTION: RAD - Chest Single View - 02/02/2019 1:44 pm CLINICAL HISTORY: COPD COMPARISON: February 01 TECHNIQUE: AP portable chest image was obtained 1342 hours . FINDINGS: No peripheral mass or consolidation. Portable technique and large body habitus accentuate lung markings. Interstitial pattern is not clearly different. Vasculature is mildly prominent. Cardia c silhouette is enlarged. Heart, vasculature and lung markings are similar to comparison. No measurable pleural effusion and no pneumothorax. No acute bony abnormality seen. No acute aortic findings suspected. IMPRESSION: Mild CHF/volume overload pattern has shown no significant change.
--- NOTE | 2019-02-02 14:46 | PN ---
Date of Progress Note: 02/02/2019 Subjective: Patient seen and examined. Chart reviewed and case discussed with RN and Dr. Graham. Patient understands that his kidney function has worsened. He does admit to taking significant amou nts of ibuprofen. Headache, nausea, and vomiting have resolved since stopping hydralazine. Medications: List reviewed. Physical Examination: Vital Signs: Temperature 98.1, heart rate 70, blood pressure 133/94, respirations 16, O2 94% on room air. General: Awake, alert, oriented x3. Not in any acute distress. Morbidly obese male. CV: S1, S2. Regular rate and rhythm. Peripheral pulses present. Respiratory: Diminished breath sounds at the bases. No wheezing or stridor. Gastrointestinal: Abdomen is soft, nontender, nondistended. Positive bowel sounds. Extremities: No clubbing or cyanosis. Pedal edema. Neurologic: Cranial nerves 2 through 12 intact grossly. No focal neurological deficit. Skin: No rashes. Normal skin turgor. Laboratory Data: Sodium 138, potassium 3.6, chloride 99, CO2 of 33, BUN 37, creatinine 2.6, glucose 102. Uric acid is 9.6. Calcium 9, phosphorus 5, magnesium 2.2, albumin 3.4. TSH 1.04. PTH is 246. Cortisol 33. Aldosterone and renin levels are pending. Immunology panel and hepatitis and HIV denny el also pending. UA shows negative nitrite, negative leukocyte esterase, trace protein. UDS is nega tive. Renal ultrasound shows unremarkable renal ultrasound. No hydronephrosis. Head CT scan negati ve for acute abnormality. Assessment: A 53-year-old male with; 1.Accelerated hypertension, improved, off Cardene drip. Hydralazine discontinued due to side effect s of nausea and vomiting. Patient was having significant amount of headaches. CT scan was done, [facility] was negative for any acute bleed. Medications have been adjusted. Blood pressure is significantl y better. 2.Acute congestive heart failure, diastolic dysfunction, EF 50% to 55%. We will repeat chest x-ray to see if there is any improvement. May need to discontinue Lasix altogether due to elevated kidney function. Output at this point is -510. 3.Acute kidney injury. Creatinine further worsening. Creatinine is elevated to 2.6 today, likely s econdary to possible acute tubular necrosis from NSAID overuse or from prerenal azotemia. SURY inhibi tor was discontinued. May need to discontinue Lasix depending on chest x-ray results. We will need to continue to monitor and avoid NSAIDs. 4.Elevated troponin level, likely related to accelerated hypertension and congestive heart failure. Appreciate Cardiology input. Echocardiogram shows normal EF, left ventricular hypertrophy, decrease d compliance. 5.Hypertensive heart disease. Patient counseled. 6.Morbid obesity. BMI is 51.5. 7.Nicotine dependence with cigarette smoking. Counseled. 8.Hypokalemia corrected. 9.Hyperphosphatemia, likely due to kidney injury. 10.Noncompliance, intentional. Counseled. 11.Headache, resolved. Head CT negative for hemorrhage, likely related to medication side effect ve rsus accelerated hypertension. Plan: Nephrology has ordered workup for acute kidney injury. We will continue to monitor. Likely d ischarge in the next 24 to 48 hours depending on improvement. /ROWDY Voice ID: [id number] Report ID: [id number]
--- NOTE | 2019-02-02 15:36 | CON ---
Date of Consultation: 02/01/2019 Reason For Consultation: Elevated BUN and creatinine, fluid management. History Of Present Illness: This is a pleasant 53-year-old gentleman with significant past medical h istory of hypertension, recently moved to the area, hyperlipidemia, morbid obesity. Patient was in h is regular state of health. Apparently, patient because he moved to the area, he ran out of his medi cation. Patient came to the hospital complaining of shortness of breath for the last 3 to 4 days wit h orthopnea and leg swelling. Upon arrival to the hospital, found to have marginal elevation in crea tinine 1.2 with blood pressure above 200. For that reason, patient was admitted to the ICU. In the ICU, patient was on a Cardene drip. Blood pressure got controlled, but his kidney function had decli scar from 1.2 to 1.8 with GFR dropped from 75 to 48. For that reason, we have been consulted. Review ing the record from the hospital, patient did not receive any IV contrast. Patient has been on Lasix 20 mg and patient used to be on lisinopril, which was discontinued by Dr. Bolanso yesterday. The patient admits that he is being taking Aleve and ibuprofen almost 3 to 6 tablets every other day for the last few weeks. Patient denied taking any other nonsteroidal. No other hospitalization. No recent antibiotic exposure. Again, there is no IV contrast for the patient. Past Medical History: 1.Hypertension. 2.Morbid obesity. Home Medications: Amlodipine, carvedilol, clonidine, lisinopril with hydrochlorothiazide. Past Surgical History: Negative. Family History: Positive for hypertension and diabetes. Social History: Active smoker. Denied alcohol. Denied drug abuse. Review of Systems: Head and Neck: No red eye. No ear pain. GI: No nausea. No vomiting. : No polyuria. No dysuria. No hematuria. [employer]: Not applicable. Respiratory: Has shortness of breath. Has orthopnea. Musculoskeletal: No joint pain. Endocrine: No polydipsia. Skin: No rash. Neuro: No neuropathy. Physical Examination: General: When I saw the patient, patient lying in bed, comfortable, not in any distress. Vital Signs: Blood pressure 170/100, pulse of 96, afebrile. Again, patient's Cardene drip just disc ontinued. Chest: Faint crackles on the left base. Heart: S1 and S2 regular. Abdomen: Soft, nontender, morbidly obese. Could not appreciate any organomegaly or renal bruit. Extremities: +1 edema. Neurologic: Alert and oriented x3. No focal. Laboratory Data: No previous admission to this hospital. Upon admission, creatinine 1.3, GFR of 67, marginal hypokalemia 3.9. Today's labs, sodium 138, potassium 3.7, bicarb 33, BUN 28, creatinine 1. 8, calcium 8.8, phosphorus 3.4, magnesium of 2. BNP 363. Albumin 3.2. Urinalysis; specific gravity of 1.010, negative for protein. Chest x-ray; cardiomegaly with congestion. Current Medications: In the hospital include clonidine 0.2 b.i.d., carvedilol 6.25 b.i.d., Zofran, p romethazine, Lasix 20 b.i.d. Assessment And Plan: 1.Acute kidney injury, multifactorial, secondary to hypertensive nephrosclerosis/urgent hypertension with target organ complicated with no acidosis, slightly on the over volume side. a.I am going to go ahead and send for workup including pulmonary and renal. I am going to go ahead and increase carvedilol and clonidine and Lasix to establish better volume and blood pressure control . We will send for renal ultrasound and protein and creatinine and will follow up the patient closel y. 2.Hypertension with urgent hypertension with target organ. We will send for urine drug screen. We will work for secondary hypertension. Echocardiogram ruled out any valvular disease or structural di sease. We will send for metanephrine, plasma renin activity, and aldosterone level, especially with the presence of hypokalemia in spite of this hypertension and decline in the kidney function. a.I am going to increase Lasix to 40 mg b.i.d., carvedilol 12.5 b.i.d., and clonidine 0.2 t.i.d., an d will follow up the patient. 3.Hypokalemia. Given the decline in the kidney function, I am not going to be supplementing. Thank you Dr. Bolanos for allowing us to participate in the care of your patient. KIMANI/ROWDY Voice ID: [id number] Report ID: [id number]
--- NOTE | 2019-02-02 16:45 | PN ---
Date of Progress Note: 02/02/2019 Subjective: Patient was admitted with acute kidney injury, urgent hypertension. Yesterday, I increa sed clonidine, carvedilol, and Lasix. Patient feeling better. Blood pressure has been well controll ed today. Shortness of breath subsided significantly. Physical Examination: Vital Signs: Blood pressure 140/77, pulse of 92, afebrile. Patient had good urine output of 2600. He gained weight, but he does not look that he gained weight, mostly using different skill. Chest: Clear to auscultation. Heart: S1, S2 regular. Abdomen: Soft, nontender. Extremities: Trace edema. Laboratory Data: Sodium 138, potassium 3.7, bicarb 33, BUN 28, creatinine 1.8, calcium 8.8. Phospho kyleigh 3.4, magnesium of 2. BNP 362. Cortisol level 33. PTH 246. TSH 1.04. LDL is 49. Urinalysis, PC ratio 0.1. No hematuria. No leukorrhea. Chest x-ray still pending. Renal ultrasound still pend ing. Assessment And Plan: Acute kidney injury. Our differential: 1.Secondary to nonsteroidal use. 2.Rule out pulmonary renal syndrome. 3.Secondary to urgent Hypertension. Plan: 1.Given the decline in the kidney function, I am going to go ahead and backup on the Lasix. I repea t chest x-ray. If chest x-ray showing clearance of the interstitial infiltration of the patient, at that time we are going to be convinced that he was overloaded with diastolic dysfunction. But if the chest x-ray did not show any clearance of the fluid, even though the patient's symptoms have been im proved with worsening kidney function, I am going to be holding the Lasix. We will proceed with high -resolution CT for the chest without contrast to evaluate if we facing any pulmonary/renal. 2.I will follow up his renal ultrasound and his serology. 3.Hypertension. We will control currently with history of urgent hypertension with target organ dam age. I am going to continue current medication, except the Lasix will backup on it as above. 4.We will follow up secondary hypertension workup given the fact that the patient presently has hypo kalemia in spite of worsening kidney function. Patient's plasma renin activity and aldosterone level are still pending. I am going to go ahead and send for urine electrolyte to see if there is any pot assium wasting to support the hyperaldosteronism. 5.Hypokalemia, as above. We will supplement cautiously. I will check for the magnesium level. 6.Secondary hyperparathyroidism. I am going to go ahead and send for vitamin D level and will start the patient on calcitriol in the presence of urgent hypertension with the workup of secondary hypert ension. His cortisol level being on the upper side, so I am going to send for suppression test to e if patient has any Fortine at that time. We are going to be thinking about main syndrome. 7.Congestive heart failure as by Cardiology. KIMANI/ROWDY Voice ID: [id number] Report ID: [id number]
[2019-02-03 00:39] LABS: Rheumatoid Factor NEG (NEG)
[2019-02-03 05:38] LABS: Absolute Lymphocytes (CBC) 2.2 K/uL (0.7-4.9); Basophils % 0.9 % (0-1.3); Hematocrit 44.5 % (39.6-49.0); Lymphocytes % 35.4 % (15.3-44.8); MPV 9.5 fL (7.6-11.3); RBC Red Blood Cell Count 4.45 M/uL (4.33-5.43)
[2019-02-03 05:57] LABS: Albumin 3.1 g/dL (3.4-5.0); Phosphorus 4.1 mg/dL (2.5-4.9); Potassium 4.2 mmol/L (3.5-5.1)
[2019-02-03] MEDS: FLUTICASONE 50MCG NASAL SPRAY NAS SCH ×3 (09:00→20:47)
[2019-02-03] MEDS: CARVEDILOL 12.5 MG TAB PO SCH ×3 (09:12→20:53)
[2019-02-03] MEDS: cloNIDine HCl 0.1 MG TAB PO SCH ×4 (09:12→20:53)
[2019-02-03] MEDS: GUAIFENESIN 600 MG SA TAB PO SCH ×2 (09:12→20:46)
--- NOTE | 2019-02-03 11:48 | RAD REPORT ---
EXAM DESCRIPTION: CT - Thorax Wo Con CLINICAL HISTORY: Chest pain SOB, pulmonary edema, pulmonary renal syndrome COMPARISON: Chest Single View dated 02/02/2019 FINDINGS: Areas of linear atelectasis are present in both lung bases, greater on the right. No signi ficant interstitial lung disease pattern is seen. No pulmonary nodule, mass or significant consolidat ion. No pleural thickening or pleural effusion. No pneumothorax. Cardiac size is mildly prominent. No axillary, mediastinal or hilar adenopathy. No concerning bony finding. No gross upper abdominal finding. All CT scans are performed using dose optimization technique as appropriate and may include automated exposure control or mA/KV adjustment according to patient size. IMPRESSION: Subsegmental atelectasis is present predominately in both lung bases without a significa nt interstitial lung disease pattern.
--- NOTE | 2019-02-03 12:53 | PN ---
Mr. Snyder has had excellent control of his blood pressure, other vital signs, and his fluid balance. U nfortunately, his renal function has deteriorated greatly and today's creatinine is 2.8. From the ca rdiac standpoint, I think the patient could be discharged home. The nephrology service may want to m lion some changes in his medications. The only medications that are probably really affecting his siri al function that I see are all the diuresis he has had. He is no longer on diuresis. He is not on a n SURY inhibitor or an angiotensin receptor mary nor as he on any nonsteroidal anti-inflammatory dr whiting, so this may be his baseline dry weight creatinine and he may be looking at dialysis. From the c ardiac standpoint, he is stable enough to be discharged home. RIYA/ROWDY Voice ID: [id number] Report ID: [id number]
--- NOTE | 2019-02-03 13:32 | P.PN ---
Subjective Date of Service: 02/03/19 Chief Complaint: Shortness of breath Pt with HX of HTN , admitted for HTN urgency and SOB today feels better BP controlled elevated cortisol will send for 24 hr urine cortisol lasix dcd cr cont to trend up , serology W/U pending , could be due to ischemic ATN from BP drop , if no improvement in RFT by Wednesday then will et Pt for renal biopsy Physical Examination - Vital Signs Temperature: 97.0 F Blood Pressure: 148/74 Pulse: 67 Respirations: 17 Pulse Ox (%): 98 - Physical Exam General: In no apparent distress, Oriented x3, Obese HEENT: Atraumatic Neck: Supple, Without JVD or thyroid abnormality Respiratory: Clear to auscultation bilaterally, Normal air movement Cardiovascular: No edema, Regular rate/rhythm, Normal S1 S2, No rubs, No murmurs Gastrointestinal: Soft and benign Assessment And Plan - Current Problems (Diagnosis) (1) MELONIE (acute kidney injury) Current Visit: Yes Status: Acute - Plan MELONIE unclear etiology could be due to ischemic ATN from rapid drop in BP? US : no hydro UA : no bld , UPC 0.1 if no improvement in RFT by Wednesday then will arrange for renal biopsy will rpt CPK HTN controlled now n coreg and clonidine f/u renin/blanca elevated cortisol , will send or 24hr urine cortisol Utox; -ve secondary hyperparathyroidism cont calcitriol
--- NOTE | 2019-02-03 17:26 | PN ---
Date of Progress Note: 02/03/2019 Subjective: Patient seen and examined. Chart reviewed and case discussed with RN. Patient does not seem to have any complaints. No acute events overnight. Denies any nausea or vomiting. Medications: List reviewed. Physical Examination: Vital Signs: Temperature 97, heart rate 67, blood pressure 148/74, respirations 17, O2 98% on room a ir. General: Awake, alert, oriented x3. Morbidly obese male. Not in any acute distress. CV: S1, S2. Regular rate and rhythm. Peripheral pulses present. Respiratory: Diminished breath sounds especially at the bases. No wheezing or stridor. No use of a ccessory muscles. Gastrointestinal: Abdomen is soft, nontender, nondistended. Positive bowel sounds. Neurologic: Cranial nerves 2 through 12 intact grossly. No focal neurological deficit. Extremities: No clubbing, cyanosis. Minimal pedal edema. Laboratory Data: Sodium 138, potassium 4.2, chloride 98, CO2 of 35, BUN 53, creatinine 2.98, glucose 108, calcium 8.9, phosphorus 4.1, albumin 3.1. Renin, aldosterone levels are pending. Vitamin D3 a lso pending. CBC; WBC is 6.1, H and H are 15.4 and 44.5, platelets 227, neutrophils 50%. Rheumatoid factor is negative. Immunology screen is pending. Hepatitis panel and HIV panel are also pending. CT high-resolution shows subsegmental atelectasis present predominantly in both lung bases without a ny significant interstitial lung disease pattern. Assessment: A 53-year-old male with; 1.Accelerated hypertension, significantly improved, off Cardene drip, p.o. medications adjusted. Bl ood pressure is now very stable. No further headaches. 2.Acute congestive heart failure, diastolic dysfunction, EF 50% to 55%. No significant change in th e x-ray. Lasix has been discontinued. We will continue beta-mary. SURY inhibitor held due to acu te kidney injury. 3.Acute kidney injury. Creatinine seems to be plateauing, currently at 2.9, likely due to NSAID ove ruse. Lasix and SURY inhibitor held. CT chest high-resolution done shows subsegmental atelectasis in both lungs. No significant interstitial lung disease pattern present. 4.Hypertensive heart disease. Continue with beta-mary. 5.Elevated troponin level secondary to accelerated hypertension and congestive heart failure. Echoc ardiogram shows left ventricular hypertrophy and decreased compliance. No intervention planned by Ca rdiology. 6.Morbid obesity, BMI greater than 50. Counseled. 7.Nicotine dependence with cigarette smoking. Counseled. 8.Hypokalemia. Replace and monitor. 9.Hyperphosphatemia due to kidney injury, improved. 10.Noncompliance, intentional. 11.Headache, resolved. Plan: We will continue to monitor kidney function. Follow up on Immunology and other testing. We w ill discuss with Nephrology. /MODL Voice ID: [id number] Report ID: [id number]
[2019-02-04 05:44] VITALS: O2SAT 92
[2019-02-04 06:00] LABS: Phosphorus 2.7 mg/dL (2.5-4.9)
[2019-02-04 08:46] VITALS: BP 157/91; TEMP 97.1
[2019-02-04] MEDS: FLUTICASONE 50MCG NASAL SPRAY NAS SCH (09:25)
[2019-02-04] MEDS: cloNIDine HCl 0.1 MG TAB PO SCH (09:27)
[2019-02-04] MEDS: GUAIFENESIN 600 MG SA TAB PO SCH (09:28)
[2019-02-04] MEDS: CARVEDILOL 12.5 MG TAB PO SCH (09:28)
--- NOTE | 2019-02-04 12:02 | P.PN ---
Subjective Date of Service: 02/04/19 Chief Complaint: Shortness of breath Subjective: Improving Pt with HX of HTN , admitted for HTN urgency and SOB today feels better BP slightly elevated Cr down to 1.7 pt is cleared for discharge from nephrology point of view, can add amlodipine 5mg daily Pt need to follow with nephrology clinic in 2-3 wks , to discuss results and monitor BP , pt comprehend understanding Physical Examination - Vital Signs Temperature: 97.1 F Blood Pressure: 157/91 Pulse: 68 Respirations: 20 Pulse Ox (%): 97 - Physical Exam General: In no apparent distress, Oriented x3, Obese HEENT: Atraumatic Neck: Supple Respiratory: Clear to auscultation bilaterally, Normal air movement Cardiovascular: No edema, Regular rate/rhythm, No gallops, No rubs, No murmurs Gastrointestinal: Normal bowel sounds Musculoskeletal: No swelling Assessment And Plan - Current Problems (Diagnosis) (1) MELONIE (acute kidney injury) Current Visit: Yes Status: Acute - Plan MELONIE unclear etiology Cr improved now could be due to ischemic ATN from rapid drop in BP? US : no hydro UA : no bld , UPC 0.1 need to Follow with nephrology clinic after discharge HTN mildly elevated today Cont coreg and clonidine will add norvasc 5mg daily f/u renin/blanca elevated cortisol , 24hr urine cortisol can be done as an OP Utox; -ve secondary hyperthyroidism cont calcitriol
[2019-02-04] MEDS: CALCITROL 0.25 MCG CAP PO SCH (12:54)
[2019-02-04 15:13] LABS: HIV AG/AB 4TH GEN Non-reactive (Non-reactive)
[2019-02-04 18:56] LABS: Hepatitis C Virus RNA (PCR)log 6.21 log IU/mL
--- NOTE | 2019-02-04 22:44 | DS ---
Date of Discharge: 02/04/2019 Consultants: Dr. Graham, Dr. Teixeira with Nephrology, Dr. Michael and Dr. Montes with Cardiology . Admitting Diagnoses: 1.Malignant hypertension. 2.Acute congestive heart failure. 3.Troponin level elevated. 4.Morbid obesity. 5.Nicotine dependence. Discharge Diagnoses: 1.Accelerated hypertension, improved. 2.Acute congestive heart failure, diastolic dysfunction, improved. 3.Acute kidney injury, resolving. 4.Hypertensive heart disease. 5.Elevated troponin level secondary to accelerated hypertension and congestive heart failure. 6.Morbid obesity. BMI greater than 50. Counseled. Patient will benefit from a bariatric surgery. 7.Nicotine dependence with cigarette smoking, counseled. 8.Hypokalemia, replaced. 9.Hyperphosphatemia, corrected. 10.Noncompliance. 11.Headache, resolved. Hospital Course: Patient is a 53-year-old male here from [place] for work with history of hypert ension, comes in with shortness of breath. Patient had been out of his antihypertensive medications and he was found to have a systolic blood pressure in the 200s. He was admitted to the hospital, [facility] responded well to oral medications; however, had significant elevation of his blood pressure l eading to ICU transfer and starting Cardene drip. Patient was slowly weaned off the Cardene drip. H is blood pressure improved, however, his kidneys function became elevated. He was on Lasix for his C HF. Echocardiogram was done, which showed EF of 50% to 55%. He had left ventricular hypertrophy and left ventricular compliance was diminished. Patient was seen by Cardiology. No intervention was pl anned. Nephrology was also consulted due to his worsening kidney function, this was initially though t to be possibly ATN from the blood pressure fluctuations versus NSAID use. Patient has been using N SAIDs significantly while at home. Workup was sent out and immunology and serology workup is still p ending. Patient will need to have repeat kidney function and followup with Nephrology to complete hi s renal workup. CT scan of the chest was done to rule out pulmonary-renal syndrome, which was negati ve. His chest x-ray did not show improvement with Lasix. Therefore, Lasix was stopped. Patient's k idney function did improve. Renal ultrasound did not show any hydronephrosis or other abnormalities. It should be noted that patient also had significant headache and nausea and vomiting. This was ev aluated by the head CT scan, which was negative to rule out hemorrhage in the setting of accelerated hypertension. Patient seemed to have side effects of nausea and vomiting from hydralazine. His symp toms resolved once hydralazine was discontinued. Patient was counseled extensively regarding his com pliance. He will need to follow up closely with the [facility] for repeat blood work to monitor hi s kidney function and to follow up with his serology and immunology workup. Patient will also need t o find a primary care provider while he is in the area, his regular PCP is in [place]. Medications: As per medication reconciliation list. Discontinue lisinopril and hydrochlorothiazide. Clonidine was increased to t.i.d. Beta-mary dose was increased and Norvasc dose was decreased. Diet: Heart healthy. Followup: Follow up with PCP in 2 to 3 days. Follow up with [facility], Dr. Graham in 2 weeks. Return to ER for worsening condition. Patient will benefit from bariatric surgery due to his morbid obesity. Activity: As tolerated. Physical Examination: General: Awake, alert, oriented x3. Morbidly obese male. CV: S1, S2. Respiratory: Moving air well bilaterally. Abdomen: Abdomen is soft, nontender, nondistended. Positive bowel sounds. Extremities: No clubbing, cyanosis. Trace pedal edema. Neurologic: Nonfocal. Total time spent discharging patient was 36 minutes. BERNICE Voice ID: [id number] Report ID: [id number]
[2019-02-05 21:27] LABS: HBsAG Nonreactive (Nonreactive)
[2019-02-08 22:13] LABS: Vitamin D 1,25-Dihydroxy Total 50 pg/mL (18-72); Vitamin D,1,25-OH2, D2 <8 pg/mL
== END 2019-02-04 13:22 | disposition home or self-care (01) | DRG 291 ==
LOC: ER 15:26 → ERHOLD 18:17 → 4TH 19:34 → 3RD-ICU 01-31 00:38 → 4TH 02-01 11:00
PROVIDERS: ADMIT Family Medicine; ATTEND Family Medicine
DX: I13.0 Hypertensive heart and chronic kidney disease with heart failure and stage 1 through stage 4 chronic kidney disease, or unspecified chronic kidney disease (principal); I50.33 Acute on chronic diastolic (congestive) heart failure; N17.0 Acute kidney failure with tubular necrosis; N25.81 Secondary hyperparathyroidism of renal origin; N18.3 Chronic kidney disease, stage 3 (moderate); N14.1 Nephropathy induced by other drugs, medicaments and biological substances; T39.395A Adverse effect of other nonsteroidal anti-inflammatory drugs [NSAID], initial encounter; R79.89 Other specified abnormal findings of blood chemistry; E66.01 Morbid (severe) obesity due to excess calories; E87.6 Hypokalemia; F17.210 Nicotine dependence, cigarettes, uncomplicated; R51 Headache; E83.39 Other disorders of phosphorus metabolism; Z68.35 Body mass index [BMI] 35.0-35.9, adult; Z91.19 Patient's noncompliance with other medical treatment and regimen
CPT/HCPCS: 36415; 70450; 71045; 71046; 71250; 76770; 80048; 80053; 80061; 80069; 80076; 80307; 81003; 81015; 82088; 82533; 82550; 82570; 82652; 83520; 83735; 83880; 83935; 83970; 84100; 84132; 84156; 84244; 84300; 84443; 84484; 84550; 85025; 85610; 86021; 86038; 86160; 86225; 86317; 86430; 86704; 86706; 87340; 87389; 87522; 88108; 93005; 93306; 94760; 99285; J0360; J1940; J2270; J2405; J2550; J7030